=== PATIENT | female | born 1990 | race African-American/Black ===

== ENCOUNTER 2018-05-19 12:41 | Emergency (ER) | payer SELFPAY ==
[2018-05-19] MEDS ORDERED: METHYLPREDNISOLONE 125 MG INJ ONE (13:13)
--- NOTE | 2018-05-19 13:21 | EDPHYS ---
Physician Documentation [facility] Name: Brenna Altamirano Age: 28 yrs Sex: Female : 1990 Arrival Date: 05/19/2018 Time: 12:44 Bed 28 Private MD: None, None ED Physician Eunice Chamberlain HPI: 05/19 13:02 This 28 yrs old Black Female presents to ER via Ambulatory with complaints of Sinus ma2 Congestion. 13:02 The patient or guardian reports allergies, congestion . Onset: The symptoms/episode ma2 began/occurred gradually, 3 week(s) ago. Severity of symptoms: At their worst the symptoms were moderate, in the emergency department the symptoms are unchanged. Associated signs and symptoms: Pertinent negatives: chest pain, diarrhea, ear ache, nausea, rhinorrhea, vomiting. The patient has experienced similar episodes in the past. 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 - Social history:: Smoking status: Patient/guardian denies using tobacco, Patient/guardian denies using alcohol, street drugs, The patient lives with family. - Ebola Screening: : No symptoms or risks identified at this time. - Family history:: not pertinent. ROS: 13:02 Constitutional: Negative for fever, chills, and weight loss, Back: Negative for injury ma2 and pain. 13:02 ENT: Positive for congestion, Negative for foreign body sensation, pulling at ears, tinnitus. 13:02 All other systems are negative. Exam: 13:02 Constitutional: This is a well developed, well nourished patient who is awake, alert, ma2 and in no acute distress. ENT: Nares patent. No nasal discharge, no septal abnormalities noted. Tympanic membranes are normal and external auditory canals are clear. Oropharynx with no redness, swelling, or masses, exudates, or evidence of obstruction, uvula midline. Mucous membranes moist. Chest/axilla: Normal chest wall appearance and motion. Nontender with no deformity. No lesions are appreciated. Cardiovascular: Regular rate and rhythm with a normal S1 and S2. No gallops, murmurs, or rubs. Normal PMI, no JVD. No pulse deficits. Respiratory: Lungs have equal breath sounds bilaterally, clear to auscultation and percussion. No rales, rhonchi or wheezes noted. No increased work of breathing, no retractions or nasal flaring. Abdomen/GI: Soft, non-tender, with normal bowel sounds. No distension or tympany. No guarding or rebound. No evidence of tenderness throughout. Vital Signs: 12:47 BP 126 / 69; Pulse 89; Resp 18; Temp 97.8; Pulse Ox 100% ; Weight 53.98 kg; Height 5 sv ft. 2 in. (157.48 cm); Pain 0/10; 13:34 BP 124 / 70; Pulse 88; Resp 17; Pulse Ox 100% ; kr2 12:47 Body Mass Index 21.77 (53.98 kg, 157.48 cm) sv MDM: 12:54 Patient medically screened. ma2 13:02 Differential Diagnosis: Bronchitis Upper Respiratory Infection Sinusitis Pharyngitis. ma2 Data reviewed: vital signs, nurses notes. Counseling: I had a detailed discussion with the patient and/or guardian regarding: the historical points, exam findings, and any diagnostic results supporting the discharge/admit diagnosis, the presence of at least one elevated blood pressure reading (>120/80) during this emergency department visit. Response to treatment: the patient's symptoms have mildly improved after treatment. Administered Medications: 13:15 Drug: MethylPREDNISolone Sodium Succinate 125 mg Route: IM; Site: left gluteus; kr2 13:33 Follow up: Response: No adverse reaction kr2 Disposition: 05/19/18 13:03 Discharged to Home. Impression: Allergic rhinitis, unspecified. - Condition is Stable. - Discharge Instructions: Allergies, Adult. - Prescriptions for Flonase Allergy Relief 50 mcg/actuation Nasal spray,suspension - inhale 1 spray by INTRANASAL route once daily; 1 box. Medrol (Bright) 4 mg Oral Tablets, Dose Pack - take 1 tablet by ORAL route as directed - follow package instructions; 1 packet. - Medication Reconciliation Form, Thank You Letter, Antibiotic Education, Prescription Opioid Use form. - Follow up: Private Physician; When: Tomorrow; Reason: Continuance of care. Signatures: Hilaria Triplett RN RN Audrey Davis RN RN kr2 Eunice Chamberlain MD MD de2 Corrections: (The following items were deleted from the chart) 13:34 13:03 05/19/2018 13:03 Discharged to Home. Impression: Allergic rhinitis, unspecified. kr2 Condition is Stable. Forms are Medication Reconciliation Form, Thank You Letter, Antibiotic Education, Prescription Opioid Use. Follow up: Private Physician; When: Tomorrow; Reason: Continuance of care. carla
--- NOTE | 2018-05-19 13:21 | ER ---
Nurse's Notes [facility] Name: Brenna Altamirano Age: 28 yrs Sex: Female : 1990 Arrival Date: 05/19/2018 Time: 12:44 Bed 28 Private MD: None, None Diagnosis: Allergic rhinitis, unspecified Presentation: 05/19 12:45 Presenting complaint: Patient states: sinus congestion x 2-3 weeks. Transition of care: sv patient was not received from another setting of care. Transition of care: patient was not received from another setting of care. Onset of symptoms was May 2018. Care prior to arrival: None. 12:45 Method Of Arrival: Ambulatory sv 12:45 Acuity: DANIEL 5 sv 12:59 Risk Assessment: Do you want to hurt yourself or someone else? Patient reports no kr2 desire to harm self or others. Initial Sepsis Screen: Does the patient meet any 2 criteria? No. Patient's initial sepsis screen is negative. Does the patient have a suspected source of infection? No. Patient's initial sepsis screen is negative. 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 - Social history:: Smoking status: Patient/guardian denies using tobacco, Patient/guardian denies using alcohol, street drugs, The patient lives with family. - Ebola Screening: : No symptoms or risks identified at this time. - Family history:: not pertinent. Screenin:59 Abuse screen: Denies threats or abuse. Denies injuries from another. Nutritional kr2 screening: No deficits noted. Tuberculosis screening: No symptoms or risk factors identified. Fall Risk None identified. Assessment: 12:58 General: Appears in no apparent distress. uncomfortable, well groomed, well developed, kr2 well nourished, Behavior is calm, cooperative, appropriate for age. Pain: Complains of pain in face Pain does not radiate. Pain currently is 5 out of 10 on a pain scale. Quality of pain is described as pressure, tender, Is continuous, Alleviated by nothing. Neuro: Level of Consciousness is awake, alert, obeys commands, Oriented to person, place, time, situation. Cardiovascular: Capillary refill < 3 seconds in bilateral fingers Patient's skin is warm and dry. Respiratory: Airway is patent Respiratory effort is even, unlabored, Respiratory pattern is regular, symmetrical. GI: Abdomen is flat. EENT: Oral mucosa is moist. Reports nasal congestion. Derm: Skin is intact, is healthy with good turgor, Skin is pink, warm \T\ dry. Vital Signs: 12:47 BP 126 / 69; Pulse 89; Resp 18; Temp 97.8; Pulse Ox 100% ; Weight 53.98 kg; Height 5 sv ft. 2 in. (157.48 cm); Pain 0/10; 13:34 BP 124 / 70; Pulse 88; Resp 17; Pulse Ox 100% ; kr2 12:47 Body Mass Index 21.77 (53.98 kg, 157.48 cm) sv ED Course: 12:44 Patient arrived in ED. sb2 12:44 None, None is Private Physician. sb2 12:46 Triage completed. sv 12:47 Arm band placed on. sv 12:52 Eunice Chamberlain MD is Attending Physician. ma2 12:57 Audrey Davis, RN is Primary Nurse. kr2 13:00 Patient has correct armband on for positive identification. Bed in low position. Call kr2 light in reach. Side rails up X 1. Pulse ox on. NIBP on. Door closed. Warm blanket given. Head of bed elevated. 13:33 No provider procedures requiring assistance completed. Patient did not have IV access kr2 during this emergency room visit. Administered Medications: 13:15 Drug: MethylPREDNISolone Sodium Succinate 125 mg Route: IM; Site: left gluteus; kr2 13:33 Follow up: Response: No adverse reaction kr2 Outcome: 13:03 Discharge ordered by . ma2 13:33 Discharged to home ambulatory, with family. kr2 13:33 Condition: good 13:33 Discharge instructions given to patient, family, Instructed on discharge instructions, follow up and referral plans. medication usage, Demonstrated understanding of instructions, follow-up care, medications, Prescriptions given X 1. 13:34 Patient left the ED. kr2 Signatures: Hilaria Triplett RN RN Audrey Davis RN RN kr2 Eunice Chamberlain MD MD ma2 Ashwini Gómez sb2
[2018-05-20 14:41] VITALS: BP 124/70; TEMP 97.8; O2SAT 100
== END 2018-05-19 13:34 | disposition home or self-care (01) ==
LOC: ER 12:41
DX: J30.9 Allergic rhinitis, unspecified (principal)
CPT/HCPCS: 96372; 99283; J2930

== ENCOUNTER 2018-07-12 14:55 | Emergency (ER) | payer SELFPAY ==
--- NOTE | 2018-07-12 15:20 | EDPHYS ---
Physician Documentation [facility] Name: Brenna Altamirano Age: 28 yrs Sex: Female : 1990 Arrival Date: 07/12/2018 Time: 14:58 Bed 25 Private MD: None, None ED Physician Mike Parikh HPI: 07/12 15:14 This 28 yrs old Black Female presents to ER via Ambulatory with complaints of Abscess. pm1 15:14 The patient presents with an abscess of the coccyx. Description: draining, raised. pm1 Onset: The symptoms/episode began/occurred 2 day(s) ago. Possible cause(s): unknown. Associated signs and symptoms: Pertinent positives: drainage, Pertinent negatives: fever. Modifying factors: the symptoms are alleviated by warm soaks, squeezing the lesion and expressing the contents, the symptoms are aggravated by touching. Severity of symptoms: in the emergency department the symptoms have improved, markedly. The patient has not experienced similar symptoms in the past. The patient has not recently seen a physician. Patient with abscess to gluteal cleft onset 2 days ago. Patient applied warm compress and expressed some drainage. Size has markedly improved with no current drainage. 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 - Social history:: Smoking status: Patient/guardian denies using tobacco. - Ebola Screening: : No symptoms or risks identified at this time. ROS: 15:14 Constitutional: Negative for fever, chills, and weight loss, Eyes: Negative for injury, pm1 pain, redness, and discharge, ENT: Negative for injury, pain, and discharge, Neck: Negative for injury, pain, and swelling, Cardiovascular: Negative for chest pain, palpitations, and edema, Respiratory: Negative for shortness of breath, cough, wheezing, and pleuritic chest pain, Abdomen/GI: Negative for abdominal pain, nausea, vomiting, diarrhea, and constipation, Back: Negative for injury and pain, : Negative for injury, bleeding, discharge, and swelling, MS/Extremity: Negative for injury and deformity. 15:14 Neuro: Negative for headache, weakness, numbness, tingling, and seizure. 15:14 Skin: Positive for abscess, of the coccyx, Negative for cellulitis. Exam: 15:14 Constitutional: This is a well developed, well nourished patient who is awake, alert, pm1 and in no acute distress. Head/Face: Normocephalic, atraumatic. Neck: Trachea midline, no thyromegaly or masses palpated, and no cervical lymphadenopathy. Supple, full range of motion without nuchal rigidity, or vertebral point tenderness. No Meningismus. Chest/axilla: Normal chest wall appearance and motion. Nontender with no deformity. No lesions are appreciated. Cardiovascular: Regular rate and rhythm with a normal S1 and S2. No gallops, murmurs, or rubs. Normal PMI, no JVD. No pulse deficits. Respiratory: Lungs have equal breath sounds bilaterally, clear to auscultation and percussion. No rales, rhonchi or wheezes noted. No increased work of breathing, no retractions or nasal flaring. Abdomen/GI: Soft, non-tender, with normal bowel sounds. No distension or tympany. No guarding or rebound. No evidence of tenderness throughout. Back: No spinal tenderness. No costovertebral tenderness. Full range of motion. 15:14 MS/ Extremity: Pulses equal, no cyanosis. Neurovascular intact. Full, normal range of motion. 15:14 Skin: Appearance: normal except for affected area, Phlegmon to gluteal cleft: no redness, fluctuance, surrounding cellulitis, pointing, or drainage present. [facility] present as bottle blower for evalution. 15:14 Neuro: Orientation: is normal, Motor: is normal. Vital Signs: 15:03 BP 103 / 64; Pulse 80; Resp 16; Temp 98.4; Pulse Ox 100% ; Height 5 ft. 2 in. (157.48 sv cm); Pain 2/10; 15:06 Weight 54.66 kg (M); sv 15:06 Body Mass Index 22.04 (54.66 kg, 157.48 cm) sv MDM: 15:04 Patient medically screened. pm1 15:14 Data reviewed: vital signs. Data interpreted: Pulse oximetry: on room air is 100 %. pm1 Interpretation: normal. Counseling: I had a detailed discussion with the patient and/or guardian regarding: the historical points, exam findings, and any diagnostic results supporting the discharge/admit diagnosis, the need for outpatient follow up, for definitive care, a general surgeon, to return to the emergency department if symptoms worsen or persist or if there are any questions or concerns that arise at home. 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 Exp: ls4 08/23/2020. Lot #: [id number]. } Route: IM; Site: right deltoid; 16:09 Follow up: Response: No adverse reaction ls4 15:36 Drug: Tylenol #3 (300 mg-30 mg) 1 tablet Route: PO; ls4 15:41 Follow up: Response: No adverse reaction ls4 Disposition: 07/12/18 15:20 Discharged to Home. Impression: Pilonidal cyst without abscess. - Condition is Stable. - Discharge Instructions: Pilonidal Cyst. - Prescriptions for Tylenol- Codeine #3 300-30 mg Oral Tablet - take 1 tablet by ORAL route every 6 hours As needed; 12 tablet. Bactrim DS 800- 160 mg Oral Tablet - take 1 tablet by ORAL route every 12 hours for 10 days; 20 tablet. - Medication Reconciliation Form, Thank You Letter, Antibiotic Education, Prescription Opioid Use form. - Follow up: Emergency Department; When: As needed; Reason: Worsening of condition. Follow up: Phi James MD; When: 2 - 3 days; Reason: Recheck today's complaints, Continuance of care, Re-evaluation by your physician. - Problem is new. - Symptoms have improved. Addendum: 07/14/2018 06:24 Co-signature as Attending Physician, Mike Parikh MD I agree with the assessment and c mclean plan of care. Signatures: Hilaria Triplett RN RN sv Anderson, Corey, MD MD cha Marinas, Patrick, NP RAILWAY YARD ASSISTANT pm1 Barbara Garay RN RN ls4 Corrections: (The following items were deleted from the chart) 07/12 15:45 15:20 07/12/2018 15:20 Discharged to Home. Impression: Pilonidal cyst without abscess. ls4 Condition is Stable. Forms are Medication Reconciliation Form, Thank You Letter, Antibiotic Education, Prescription Opioid Use. Follow up: Emergency Department; When: As needed; Reason: Worsening of condition. Follow up: Phi James; When: 2 - 3 days; Reason: Recheck today's complaints, Continuance of care, Re-evaluation by your physician. Problem is new. Symptoms have improved. pm1 16:10 15:45 07/12/2018 15:20 Discharged to Home. Impression: Pilonidal cyst without abscess. ls4 Condition is Stable. Discharge Instructions: Pilonidal Cyst. Prescriptions for Tylenol-Codeine #3 300-30 mg Oral Tablet - take 1 tablet by ORAL route every 6 hours As needed; 12 tablet, Bactrim DS 800-160 mg Oral Tablet - take 1 tablet by ORAL route every 12 hours for 10 days; 20 tablet. and Forms are Medication Reconciliation Form, Thank You Letter, Antibiotic Education, Prescription Opioid Use. Follow up: Emergency Department; When: As needed; Reason: Worsening of condition. Follow up: Phi James; When: 2 - 3 days; Reason: Recheck today's complaints, Continuance of care, Re-evaluation by your physician. Problem is new. Symptoms have improved. ls4
--- NOTE | 2018-07-12 15:20 | ER ---
Nurse's Notes [facility] Name: Brenna Altamirano Age: 28 yrs Sex: Female : 1990 Arrival Date: 07/12/2018 Time: 14:58 Bed 25 Private MD: None, None Diagnosis: Pilonidal cyst without abscess Presentation: 07/12 15:01 Presenting complaint: Patient states: abscess at the top of the gluteal cleft started 2 sv days ago. Reports that it is draining after soaking in an epsom salt bath. Denies fever. Transition of care: patient was not received from another setting of care. Onset of symptoms was July 10, 2018. Care prior to arrival: None. 15:01 Method Of Arrival: Ambulatory sv 15:01 Acuity: DANIEL 3 sv 16:07 Risk Assessment: Do you want to hurt yourself or someone else? Patient reports no ls4 desire to harm self or others. Initial Sepsis Screen: Does the patient meet any 2 criteria? No. Patient's initial sepsis screen is negative. Does the patient have a suspected source of infection? No. Patient's initial sepsis screen is negative. Triage Assessment: 15:01 General: Appears in no apparent distress. uncomfortable, slender, Behavior is calm, sv cooperative, appropriate for age. Pain: Complains of pain in buttocks Pain currently is 2 out of 10 on a pain scale. Neuro: Level of Consciousness is awake, alert, obeys commands, Oriented to person, place, time, situation, Moves all extremities. Full function Gait is steady. Respiratory: Respiratory effort is even, unlabored, Respiratory pattern is regular, symmetrical. Derm: Reports abscess to the top of her gluteal cleft. 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 - Social history:: Smoking status: Patient/guardian denies using tobacco. - Ebola Screening: : No symptoms or risks identified at this time. Screenin:16 Abuse screen: Denies threats or abuse. Denies injuries from another. Nutritional ls4 screening: No deficits noted. Tuberculosis screening: No symptoms or risk factors identified. Fall Risk None identified. 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 ls4 Vital Signs: 15:03 BP 103 / 64; Pulse 80; Resp 16; Temp 98.4; Pulse Ox 100% ; Height 5 ft. 2 in. (157.48 sv cm); Pain 2/10; 15:06 Weight 54.66 kg (M); sv 15:06 Body Mass Index 22.04 (54.66 kg, 157.48 cm) sv ED Course: 14:58 Patient arrived in ED. mr 14:58 None, None is Private Physician. mr 15:02 Triage completed. sv 15:03 Rafy Remy NP is PHCP. pm1 15:03 Mike Parikh MD is Attending Physician. pm1 15:03 Arm band placed on. sv 15:09 Barbara Garay RN is Primary Nurse. ls4 15:16 Patient has correct armband on for positive identification. Bed in low position. Side ls4 rails up X 1. 15:16 No provider procedures requiring assistance completed. Patient did not have IV access ls4 during this emergency room visit. 15:19 Phi James MD is Referral Physician. 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 Exp: ls4 08/23/2020. Lot #: [id number]. } Route: IM; Site: right deltoid; 16:09 Follow up: Response: No adverse reaction ls4 15:36 Drug: Tylenol #3 (300 mg-30 mg) 1 tablet Route: PO; ls4 15:41 Follow up: Response: No adverse reaction ls4 Outcome: 15:20 Discharge ordered by . pm1 16:09 Discharged to home ambulatory, with friend. ls4 16:09 Condition: good 16:09 Discharge instructions given to patient, family, Instructed on discharge instructions, follow up and referral plans. medication usage, safety practices, Demonstrated understanding of instructions, follow-up care, medications, wound care, Prescriptions given X 2. 16:10 Patient left the ED. ls4 Signatures: Hilaria Triplett RN RN Gladis Diaz mr Rafy Remy, KERRI CAR INSTALLATIONS SUPERVISOR pm1 Barbara Garay RN RN ls4
[2018-07-12] MEDS ORDERED: CODEINE 30MG/APAP 300MG TAB ONE (15:37)
[2018-07-12] MEDS ORDERED: TETANUS & DIPHTHERIA TOX,ADULT 0.5 ML VIAL ONE (15:38)
[2018-07-12 16:34] VITALS: BP 103/64; TEMP 98.4; O2SAT 100
== END 2018-07-12 16:10 | disposition home or self-care (01) ==
LOC: ER 14:55
DX: L05.91 Pilonidal cyst without abscess (principal)
CPT/HCPCS: 90714; 99283

== ENCOUNTER 2018-11-20 14:27 | Emergency (ER) | payer SELFPAY ==
[2018-11-20] MEDS ORDERED: IBUPROFEN 400 MG TAB ONE (15:13)
[2018-11-20] MEDS ORDERED: IBUPROFEN 200 MG TAB PO ONE (15:13)
--- NOTE | 2018-11-20 16:21 | ER ---
Nurse's Notes [facility] Name: Brenna Altamirano Age: 28 yrs Sex: Female : 1990 Arrival Date: 11/20/2018 Time: 14:29 Bed 18 Private MD: None, None Diagnosis: Otitis media, unspecified, left ear;Acute pharyngitis Presentation: 11/20 14:38 Presenting complaint: Patient states: Right ear pain and sore throat since Saturday, sg reports having chills but unsure of any fever. Transition of care: patient was not received from another setting of care. Onset of symptoms was November 20, 2018. Risk Assessment: Do you want to hurt yourself or someone else? Patient reports no desire to harm self or others. Initial Sepsis Screen: Does the patient meet any 2 criteria? No. Patient's initial sepsis screen is negative. Does the patient have a suspected source of infection? No. Patient's initial sepsis screen is negative. Care prior to arrival: None. 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 - Social history:: Smoking status: Patient/guardian denies using tobacco. - Ebola Screening: : Patient negative for fever greater than or equal to 101.5 degrees Fahrenheit, and additional compatible Ebola Virus Disease symptoms Patient denies exposure to infectious person Patient denies travel to an Ebola-affected area in the 21 days before illness onset No symptoms or risks identified at this time. Screenin:44 Abuse screen: Denies threats or abuse. Denies injuries from another. Nutritional jl7 screening: No deficits noted. Tuberculosis screening: No symptoms or risk factors identified. Fall Risk None identified. Assessment: 14:44 General: Appears in no apparent distress. uncomfortable, Behavior is calm, cooperative, jl7 appropriate for age. Pain: Complains of pain in sore throat Pain currently is 8 out of 10 on a pain scale. at worst was 10 out of 10 on a pain scale. Neuro: Level of Consciousness is awake, alert, obeys commands, Oriented to person, place, time, situation. Cardiovascular: Patient's skin is warm and dry. Respiratory: Airway is patent Respiratory effort is even, unlabored, Respiratory pattern is regular, symmetrical, Breath sounds are clear. EENT: Throat is clear bilaterally. Derm: Skin is pink, warm \T\ dry. Vital Signs: 14:37 BP 128 / 74; Pulse 102; Resp 18; Temp 99.8; Pulse Ox 100% ; Weight 63.5 kg; Height 5 sg ft. 5 in. (165.10 cm); Pain 8/10; 14:43 Pulse 95; Resp 14 S; Temp 100.4(O); Pulse Ox 100% on R/A; jl7 16:39 BP 128 / 87; Pulse 80; Resp 16 S; Temp 99.6(O); Pulse Ox 100% on R/A; jl7 14:37 Body Mass Index 23.30 (63.50 kg, 165.10 cm) ED Course: 14:29 Patient arrived in ED. mr 14:29 None, None is Private Physician. mr 14:37 Mina Costa, LAURE is Primary Nurse. jl7 14:39 Triage completed. sg 14:44 Patient has correct armband on for positive identification. Bed in low position. Call jl7 light in reach. Side rails up X 1. Pulse ox on. NIBP on. 14:59 Rafy Remy NP is PHCP. pm1 14:59 Nick Salgado MD is Attending Physician. pm1 16:40 Arm band placed on right wrist. jl7 16:41 No provider procedures requiring assistance completed. Patient did not have IV access jl7 during this emergency room visit. Administered Medications: 15:03 Drug: Motrin 600 mg Route: PO; jl7 16:41 Follow up: Response: No adverse reaction; Temperature is decreased jl7 Outcome: 16:20 Discharge ordered by . pm1 16:40 Discharged to home ambulatory. jl7 16:40 Condition: stable 16:40 Discharge instructions given to patient, family, Instructed on discharge instructions, follow up and referral plans. medication usage, Demonstrated understanding of instructions, follow-up care, medications, Prescriptions given X 1. 16:41 Patient left the ED. jl7 Signatures: Jarett Lynne RN RN sg Joe, Gladis mr Sandrita, Rafy, MEDICAL AND SCIENTIFIC ILLUSTRATOR MEDICAL AND SCIENTIFIC ILLUSTRATOR pm1 Mina Costa, LAURE RN jl7
--- NOTE | 2018-11-20 16:21 | EDPHYS ---
Physician Documentation [facility] Name: Brenna Altamirano Age: 28 yrs Sex: Female : 1990 Arrival Date: 11/20/2018 Time: 14:29 Bed 18 Private MD: None, None ED Physician Nick Salgado HPI: 11/20 15:17 This 28 yrs old Black Female presents to ER via Ambulatory with complaints of Sore pm1 Throat, Left Ear Pain. 15:17 The patient presents with sore throat. The patient describes throat pain as scratchy. pm1 Onset: The symptoms/episode began/occurred 3 day(s) ago. Severity of symptoms: in the emergency department the symptoms are actually worse. Modifying factors: The symptoms are alleviated by nothing, the symptoms are aggravated by swallowing, Talking, Patient's oral intake status: good. Associated signs and symptoms: Pertinent positives: cough, earache, Pertinent negatives chills, rhinorrhea, shortness of breath, vomiting. The patient has not experienced similar symptoms in the past. The patient has not recently seen a physician. 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 - Social history:: Smoking status: Patient/guardian denies using tobacco. - Ebola Screening: : Patient negative for fever greater than or equal to 101.5 degrees Fahrenheit, and additional compatible Ebola Virus Disease symptoms Patient denies exposure to infectious person Patient denies travel to an Ebola-affected area in the 21 days before illness onset No symptoms or risks identified at this time. ROS: 15:17 Constitutional: Negative for fever, chills, and weight loss. pm1 15:17 Eyes: Negative for injury, pain, redness, and discharge. 15:17 Neck: Negative for injury, pain, and swelling, Cardiovascular: Negative for chest pain, palpitations, and edema. 15:17 Abdomen/GI: Negative for abdominal pain, nausea, vomiting, diarrhea, and constipation, Back: Negative for injury and pain, : Negative for injury, bleeding, discharge, and swelling, MS/Extremity: Negative for injury and deformity, Skin: Negative for injury, rash, and discoloration, Neuro: Negative for headache, weakness, numbness, tingling, and seizure. 15:17 ENT: Positive for ear pain, sore throat, Negative for difficulty swallowing, difficulty handling secretions, hoarseness. 15:17 Respiratory: Positive for cough, Negative for shortness of breath, sputum production, wheezing. Exam: 15:17 Constitutional: This is a well developed, well nourished patient who is awake, alert, pm1 and in no acute distress. Head/Face: Normocephalic, atraumatic. Eyes: Pupils equal round and reactive to light, extra-ocular motions intact. Lids and lashes normal. Conjunctiva and sclera are non-icteric and not injected. Cornea within normal limits. Periorbital areas with no swelling, redness, or edema. 15:17 Neck: Trachea midline, no thyromegaly or masses palpated, and no cervical pm1 lymphadenopathy. Supple, full range of motion without nuchal rigidity, or vertebral point tenderness. No Meningismus. Chest/axilla: Normal chest wall appearance and motion. Nontender with no deformity. No lesions are appreciated. Cardiovascular: Regular rate and rhythm with a normal S1 and S2. No gallops, murmurs, or rubs. Normal PMI, no JVD. No pulse deficits. Respiratory: Lungs have equal breath sounds bilaterally, clear to auscultation and percussion. No rales, rhonchi or wheezes noted. No increased work of breathing, no retractions or nasal flaring. Abdomen/GI: Soft, non-tender, with normal bowel sounds. No distension or tympany. No guarding or rebound. No evidence of tenderness throughout. Back: No spinal tenderness. No costovertebral tenderness. Full range of motion. Skin: Warm, dry with normal turgor. Normal color with no rashes, no lesions, and no evidence of cellulitis. MS/ Extremity: Pulses equal, no cyanosis. Neurovascular intact. Full, normal range of motion. 15:17 ENT: External ear(s): are unremarkable, Ear canal(s): are normal, TM's: bulging, on the left, erythema, that is mild, on the left, Nose: is normal, Mouth: is normal, Posterior pharynx: Airway: normal, no evidence of obstruction, patent, Tonsils: bilaterally enlarged, with erythema, no exudate, no ulcerations, erythema, that is mild, peritonsillar mass, is not appreciated. 15:17 Neuro: Orientation: is normal, Motor: is normal, moves all fours, strength is normal, strength is 5/5 in all extremities. Vital Signs: 14:37 BP 128 / 74; Pulse 102; Resp 18; Temp 99.8; Pulse Ox 100% ; Weight 63.5 kg; Height 5 sg ft. 5 in. (165.10 cm); Pain 8/10; 14:43 Pulse 95; Resp 14 S; Temp 100.4(O); Pulse Ox 100% on R/A; jl7 16:39 BP 128 / 87; Pulse 80; Resp 16 S; Temp 99.6(O); Pulse Ox 100% on R/A; jl7 14:37 Body Mass Index 23.30 (63.50 kg, 165.10 cm) sg MDM: 15:02 Patient medically screened. pm1 15:17 Data reviewed: vital signs. Data interpreted: Pulse oximetry: on room air is 100 %. pm1 Interpretation: normal. 16:20 Counseling: I had a detailed discussion with the patient and/or guardian regarding: the pm1 historical points, exam findings, and any diagnostic results supporting the discharge/admit diagnosis, lab results, the need for outpatient follow up, to return to the emergency department if symptoms worsen or persist or if there are any questions or concerns that arise at home. 11/20 15:14 Order name: Strep; Complete Time: 16:11 [facility] 11/20 15:38 Order name: Throat Culture EDMS Administered Medications: 15:03 Drug: Motrin 600 mg Route: PO; 7 16:41 Follow up: Response: No adverse reaction; Temperature is decreased [facility] Disposition: 11/20/18 16:20 Discharged to Home. Impression: Otitis media, unspecified, left ear, Acute pharyngitis. - Condition is Stable. - Discharge Instructions: Pharyngitis, Otitis Media, Adult, [id number]. - Prescriptions for Amoxicillin 500 mg Oral Capsule - take 1 capsule by ORAL route every 8 hours for 10 days; 30 tablet. - Medication Reconciliation Form, Thank You Letter, Antibiotic Education, Prescription Opioid Use form. - Follow up: Emergency Department; When: As needed; Reason: Worsening of condition. Follow up: Private Physician; When: 2 - 3 days; Reason: Recheck today's complaints, Continuance of care, Re-evaluation by your physician. - Problem is new. - Symptoms have improved. Addendum: 11/23/2018 00:13 Co-signature as Attending Physician, Nick Salgado MD. g s Signatures: Dispatcher [employer] EDMS Jarett Lynne RN RN sg Rafy Remy NP WHOLESALE MANAGER pm1 Mina Costa RN RN jl7 Nick Salgado MD MD Corrections: (The following items were deleted from the chart) 11/20 16:41 16:20 11/20/2018 16:20 Discharged to Home. Impression: Otitis media, unspecified, left jl7 ear; Acute pharyngitis. Condition is Stable. Forms are Medication Reconciliation Form, Thank You Letter, Antibiotic Education, Prescription Opioid Use. Follow up: Emergency Department; When: As needed; Reason: Worsening of condition. Follow up: Private Physician; When: 2 - 3 days; Reason: Recheck today's complaints, Continuance of care, Re-evaluation by your physician. Problem is new. Symptoms have improved. pm1
[2018-11-20 17:14] VITALS: O2SAT 100
[2018-11-20 17:17] VITALS: BP 128/87; TEMP 99.6
== END 2018-11-20 16:41 | disposition home or self-care (01) ==
LOC: ER 14:27
DX: H66.92 Otitis media, unspecified, left ear (principal)
CPT/HCPCS: 87070; 87081; 99283

== ENCOUNTER 2019-02-25 14:58 | Emergency (ER) | payer SELFPAY ==
--- NOTE | 2019-02-25 15:39 | ER ---
Nurse's Notes [facility] Name: Brenna Altamirano Age: 29 yrs Sex: Female : 1990 Arrival Date: 02/25/2019 Time: 15:02 Bed 11 Private MD: None, None Diagnosis: Other local infections of skin and subcutaneous tissue-right yazidism Presentation: 02/25 15:12 Presenting complaint: Abscess on right side of head x 2 days. Transition of care: hb patient was not received from another setting of care. Onset of symptoms was February 24, 2019. Risk Assessment: Do you want to hurt yourself or someone else? Patient reports no desire to harm self or others. Care prior to arrival: None. 15:12 Method Of Arrival: Ambulatory hb 15:12 Acuity: DANIEL 4 hb 15:13 Initial Sepsis Screen: Does the patient meet any 2 criteria? No. Patient's initial hb sepsis screen is negative. Does the patient have a suspected source of infection? No. Patient's initial sepsis screen is negative. Historical: - Allergies: 15:14 No Known Allergies; hb - Home Meds: 15:14 None [Active]; hb - PMHx: 15:14 None; hb - PSHx: 15:14 breast; wrist; hb - Immunization history:: Adult Immunizations up to date. - Social history:: Smoking status: Patient/guardian denies using tobacco. - Ebola Screening: : No symptoms or risks identified at this time. Screenin:15 Abuse screen: Denies threats or abuse. Denies injuries from another. Nutritional hb screening: No deficits noted. Tuberculosis screening: No symptoms or risk factors identified. Fall Risk None identified. Assessment: 15:16 General: Appears in no apparent distress. Behavior is calm, cooperative. Pain: Pain hb currently is 8 out of 10 on a pain scale. Neuro: Level of Consciousness is awake, alert, obeys commands, Oriented to person, place, time, situation. Cardiovascular: Capillary refill < 3 seconds Patient's skin is warm and dry. Respiratory: Airway is patent Respiratory effort is even, unlabored, Respiratory pattern is regular, symmetrical, Breath sounds are clear bilaterally. GI: No signs and/or symptoms were reported involving the gastrointestinal system. : No signs and/or symptoms were reported regarding the genitourinary system. EENT: No signs and/or symptoms were reported regarding the EENT system. Derm: Skin is pink, warm \T\ dry. Musculoskeletal: mild swelling noted to right sided of head. Vital Signs: 15:13 BP 117 / 76; Pulse 86; Resp 16; Temp 97.9; Pulse Ox 100% on R/A; Weight 51.71 kg; hb Height 5 ft. 2 in. (157.48 cm); Pain 8/10; 15:13 Body Mass Index 20.85 (51.71 kg, 157.48 cm) hb ED Course: 15:02 Patient arrived in ED. dl4 15:02 None, None is Private Physician. dl4 15:13 Triage completed. hb 15:14 Arm band placed on. hb 15:15 Alyce Arthur RN is Primary Nurse. hb 15:15 Patient has correct armband on for positive identification. Call light in reach. hb 15:18 Mike Hyman PA is PHCP. cp 15:18 Enio Gee MD is Attending Physician. cp 15:45 No provider procedures requiring assistance completed. Patient did not have IV access hb during this emergency room visit. Administered Medications: No medications were administered Outcome: 15:39 Discharge ordered by MD. cp 15:45 Discharged to home ambulatory. hb 15:45 Condition: stable 15:45 Discharge instructions given to patient, Instructed on discharge instructions, follow up and referral plans. medication usage, Demonstrated understanding of instructions, follow-up care, medications, Prescriptions given X 2. 15:46 Patient left the ED. hb Signatures: Mike Hyman PA PA cp Baxter, Heather, RN RN Timothy Bronson dl4
--- NOTE | 2019-02-25 15:39 | EDPHYS ---
Physician Documentation [facility] Name: Brenna Altamirano Age: 29 yrs Sex: Female : 1990 Arrival Date: 02/25/2019 Time: 15:02 Bed 11 Private MD: None, None ED Physician Enio Gee HPI: 02/25 15:34 This 29 yrs old Black Female presents to ER via Ambulatory with complaints of Cyst. cp 15:34 the patient presents with a swollen area of the right adventism. cp 15:35 Onset: The symptoms/episode began/occurred 2 day(s) ago. cp 15:35 Possible cause(s): started after removal of hair and skin adhesive. Associated signs cp and symptoms: Pertinent positives: drainage, Pertinent negatives: fever. Historical: - Allergies: 15:14 No Known Allergies; hb - Home Meds: 15:14 None [Active]; hb - PMHx: 15:14 None; hb - PSHx: 15:14 breast; wrist; hb - Immunization history:: Adult Immunizations up to date. - Social history:: Smoking status: Patient/guardian denies using tobacco. - Ebola Screening: : No symptoms or risks identified at this time. ROS: 15:35 Eyes: Negative for injury, pain, redness, and discharge. cp 15:35 Constitutional: Negative for body aches, chills, fever. 15:35 Respiratory: Negative for cough, wheezing. 15:35 Abdomen/GI: Negative for abdominal pain. 15:35 Skin: Positive for swelling, of the face. 15:35 Neuro: Negative for altered mental status, weakness. 15:35 All other systems are negative. Exam: 15:36 Constitutional: The patient appears in no acute distress, alert, awake, non-toxic, well cp developed, well nourished. 15:36 Head/face: Noted is swelling, that is mild, of the right adventism, tenderness, that is moderate, of the right adventism. 15:36 Eyes: Periorbital structures: appear normal, Conjunctiva: normal, no exudate, no injection, Lids and lashes: appear normal, bilaterally. 15:36 ENT: External ear(s): are unremarkable, Nose: is normal, Mouth: is normal, Posterior pharynx: Airway: no evidence of obstruction, patent. 15:36 Neck: ROM/movement: is normal, is supple, without pain, no range of motions limitations, no nuchal rigidity. 15:36 Chest/axilla: Inspection: normal. 15:36 Cardiovascular: Rate: normal. 15:36 Respiratory: the patient does not display signs of respiratory distress, Respirations: normal. Vital Signs: 15:13 BP 117 / 76; Pulse 86; Resp 16; Temp 97.9; Pulse Ox 100% on R/A; Weight 51.71 kg; hb Height 5 ft. 2 in. (157.48 cm); Pain 8/10; 15:13 Body Mass Index 20.85 (51.71 kg, 157.48 cm) hb MDM: 15:25 Patient medically screened. cp 15:35 Differential diagnosis: abscess, allergic reaction, cellulitis. cp 15:39 Data reviewed: vital signs, nurses notes, and as a result, I will discharge patient. cp Administered Medications: No medications were administered Disposition: 16:00 Chart complete. cp 17:21 Co-signature as Attending Physician, Enio Gee MD. rn Disposition: 02/25/19 15:39 Discharged to Home. Impression: Other local infections of skin and subcutaneous tissue - right adventism. - Condition is Stable. - Discharge Instructions: Staphylococcal Infection. - Prescriptions for Bactroban 2 % Topical Ointment - Apply to affected area 1 application by TOPICAL route every 12 hours; 15 gram. Keflex 500 mg Oral Capsule - take 1 capsule by ORAL route every 6 hours for 10 days; 40 capsule. - Medication Reconciliation Form, Thank You Letter, Antibiotic Education, Prescription Opioid Use form. - Follow up: Private Physician; When: 2 - 3 days; Reason: Worsening of condition. - Problem is new. - Symptoms have improved. Signatures: Enio Gee MD MD rn Mike Hyman PA PA cp Alyce Arthur, RN RN Corrections: (The following items were deleted from the chart) 15:46 15:39 02/25/2019 15:39 Discharged to Home. Impression: Other local infections of skin hb and subcutaneous tissue - right adventism. Condition is Stable. Forms are Medication Reconciliation Form, Thank You Letter, Antibiotic Education, Prescription Opioid Use. Follow up: Private Physician; When: 2 - 3 days; Reason: Worsening of condition. Problem is new. Symptoms have improved. cp
[2019-02-25 16:00] VITALS: BP 117/76; TEMP 97.9; O2SAT 100
== END 2019-02-25 15:46 | disposition home or self-care (01) ==
LOC: ER 14:58
DX: L08.89 Other specified local infections of the skin and subcutaneous tissue (principal)
CPT/HCPCS: 99282

== ENCOUNTER 2019-05-06 17:47 | Emergency (ER) | payer SELFPAY ==
[2019-05-06] MEDS ORDERED: METHYLPREDNISOLONE 125 MG INJ ONE (18:33)
--- NOTE | 2019-05-06 18:34 | ER ---
Nurse's Notes [facility] Name: Brenna Altamirano Age: 29 yrs Sex: Female : 1990 Arrival Date: 05/06/2019 Time: 17:51 Bed 28 Private MD: Diagnosis: Allergic rhinitis, unspecified Presentation: 05/06 18:00 Presenting complaint: Headache, sinus pressure, sore throat, bilateral ear pain, and hb diffuse itching x 3 days. Transition of care: patient was not received from another setting of care. Onset of symptoms was May 04, 2019. Risk Assessment: Do you want to hurt yourself or someone else? Patient reports no desire to harm self or others. Initial Sepsis Screen: Does the patient meet any 2 criteria? No. Patient's initial sepsis screen is negative. Does the patient have a suspected source of infection? No. Patient's initial sepsis screen is negative. Care prior to arrival: None. 18:00 Method Of Arrival: Ambulatory hb 18:00 Acuity: DANIEL 4 hb Historical: - Allergies: 18:01 No Known Allergies; hb - Home Meds: 18:01 Benadryl Oral [Active]; hb - PMHx: 18:01 Seasonal Allergies; hb - PSHx: 18:01 breast; wrist; hb - Immunization history:: Adult Immunizations up to date. - Social history:: Smoking status: Patient/guardian denies using tobacco. - Ebola Screening: : No symptoms or risks identified at this time. Screenin:00 Abuse screen: Denies threats or abuse. Nutritional screening: No deficits noted. tr5 Tuberculosis screening: No symptoms or risk factors identified. Fall Risk None identified. Assessment: 18:00 General: Appears in no apparent distress. Behavior is calm, cooperative, appropriate tr5 for age. Pain: Complains of pain in right ear and left ear. Neuro: Level of Consciousness is awake, alert, obeys commands, Oriented to person, place, time, Methods Time Analyst are equal bilaterally Moves all extremities. Cardiovascular: Heart tones present Capillary refill < 3 seconds Pulses are all present. Edema is absent. Respiratory: Airway is patent Respiratory effort is even, unlabored, Respiratory pattern is regular, symmetrical, Breath sounds are clear bilaterally. GI: No signs and/or symptoms were reported involving the gastrointestinal system. : No signs and/or symptoms were reported regarding the genitourinary system. EENT: Nares with drainage noted Throat is reddened. Derm: No signs and/or symptoms reported regarding the dermatologic system. Musculoskeletal: No signs and/or symptoms reported regarding the musculoskeletal system. Vital Signs: 17:59 BP 115 / 84; Pulse 87; Resp 16; Temp 99.4(TE); Pulse Ox 100% ; Weight 54.43 kg; Height hb 5 ft. 2 in. (157.48 cm); Pain 2/10; 17:59 Body Mass Index 21.95 (54.43 kg, 157.48 cm) hb ED Course: 17:51 Patient arrived in ED. mr 17:51 [facility]C [facility]. kb 17:51 Enio Gee MD is Attending Physician. kb 18:00 Triage completed. hb 18:01 Arm band placed on. hb 18:05 Patient has correct armband on for positive identification. tr5 18:31 Marty Frances RN is Primary Nurse. tr5 18:42 No provider procedures requiring assistance completed. Patient did not have IV access tr5 during this emergency room visit. Administered Medications: 18:36 Drug: SOLU-Medrol 125 mg Route: IM; Site: left ventrogluteal; tr5 18:43 Follow up: Response: No adverse reaction tr5 Outcome: 18:33 Discharge ordered by . kb 18:42 Discharged to home ambulatory. tr5 18:42 Condition: stable 18:42 Discharge instructions given to patient, Instructed on discharge instructions, follow up and referral plans. Demonstrated understanding of instructions, follow-up care. 18:43 Patient left the ED. tr5 Signatures: Annika Feldman FNP-C FNP-Ckb RiveraGladis Alyce Arthur, RN RN Marty Frances RN RN tr5
--- NOTE | 2019-05-06 18:34 | EDPHYS ---
Physician Documentation [facility] Name: Brenna Altamirano Age: 29 yrs Sex: Female : 1990 Arrival Date: 05/06/2019 Time: 17:51 Bed 28 Private MD: ED Physician Enio Gee HPI: 05/06 18:31 This 29 yrs old Black Female presents to ER via Ambulatory with complaints of Sore kb Throat, Ear Pain, Sneezing. 18:31 The patient presents with sore throat. The patient describes throat pain as constant. kb Onset: The symptoms/episode began/occurred last week. Severity of symptoms: At their worst the symptoms were moderate, in the emergency department the symptoms are unchanged. Modifying factors: The symptoms are alleviated by nothing, the symptoms are aggravated by nothing, Patient's oral intake status: good unaware of sick contact. Associated signs and symptoms: Pertinent positives: Sore throat congestion. The patient has experienced similar episodes in the past. The patient has not recently seen a physician. "it's my allergies. I have to come in every year around this time for a steroid shot for my allergies.". Historical: - Allergies: 18:01 No Known Allergies; hb - Home Meds: 18:01 Benadryl Oral [Active]; hb - PMHx: 18:01 Seasonal Allergies; hb - PSHx: 18:01 breast; wrist; hb - Immunization history:: Adult Immunizations up to date. - Social history:: Smoking status: Patient/guardian denies using tobacco. - Ebola Screening: : No symptoms or risks identified at this time. ROS: 18:30 Constitutional: Negative for fever, chills, and weight loss, Neck: Negative for injury, kb pain, and swelling, Cardiovascular: Negative for chest pain, palpitations, and edema, Respiratory: Negative for shortness of breath, cough, wheezing, and pleuritic chest pain, Abdomen/GI: Negative for abdominal pain, nausea, vomiting, diarrhea, and constipation, MS/Extremity: Negative for injury and deformity, Skin: Negative for injury, rash, and discoloration, Neuro: Negative for headache, weakness, numbness, tingling, and seizure. 18:30 ENT: Positive for sinus congestion, sore throat. Exam: 18:30 Constitutional: This is a well developed, well nourished patient who is awake, alert, kb and in no acute distress. Head/Face: Normocephalic, atraumatic. ENT: Nares patent. No nasal discharge, no septal abnormalities noted. Tympanic membranes are normal and external auditory canals are clear. Oropharynx with no redness, swelling, or masses, exudates, or evidence of obstruction, uvula midline. Mucous membranes moist. Neck: Trachea midline, no thyromegaly or masses palpated, and no cervical lymphadenopathy. Supple, full range of motion without nuchal rigidity, or vertebral point tenderness. No Meningismus. Chest/axilla: Normal chest wall appearance and motion. Nontender with no deformity. No lesions are appreciated. Cardiovascular: Regular rate and rhythm with a normal S1 and S2. No gallops, murmurs, or rubs. Normal PMI, no JVD. No pulse deficits. Respiratory: Lungs have equal breath sounds bilaterally, clear to auscultation and percussion. No rales, rhonchi or wheezes noted. No increased work of breathing, no retractions or nasal flaring. Abdomen/GI: Soft, non-tender, with normal bowel sounds. No distension or tympany. No guarding or rebound. No evidence of tenderness throughout. Back: No spinal tenderness. No costovertebral tenderness. Full range of motion. Skin: Warm, dry with normal turgor. Normal color with no rashes, no lesions, and no evidence of cellulitis. MS/ Extremity: Pulses equal, no cyanosis. Neurovascular intact. Full, normal range of motion. Neuro: Awake and alert, GCS 15, oriented to person, place, time, and situation. Cranial nerves II-XII grossly intact. Motor strength 5/5 in all extremities. Sensory grossly intact. Cerebellar exam normal. Normal gait. Vital Signs: 17:59 BP 115 / 84; Pulse 87; Resp 16; Temp 99.4(TE); Pulse Ox 100% ; Weight 54.43 kg; Height hb 5 ft. 2 in. (157.48 cm); Pain 2/10; 17:59 Body Mass Index 21.95 (54.43 kg, 157.48 cm) hb MDM: 18:02 Patient medically screened. kb 18:30 Data reviewed: vital signs, nurses notes. Data interpreted: Pulse oximetry: on room air kb is 100 %. Interpretation: normal. Counseling: I had a detailed discussion with the patient and/or guardian regarding: the historical points, exam findings, and any diagnostic results supporting the discharge/admit diagnosis, the need for outpatient follow up, a family practitioner, to return to the emergency department if symptoms worsen or persist or if there are any questions or concerns that arise at home. Administered Medications: 18:36 Drug: SOLU-Medrol 125 mg Route: IM; Site: left ventrogluteal; tr5 18:43 Follow up: Response: No adverse reaction tr5 Disposition: 18:51 Co-signature as Attending Physician, Enio Gee MD. rn Disposition: 05/06/19 18:33 Discharged to Home. Impression: Allergic rhinitis, unspecified. - Condition is Stable. - Discharge Instructions: Allergic Rhinitis. - Medication Reconciliation Form, Thank You Letter, Antibiotic Education, Prescription Opioid Use form. - Follow up: Emergency Department; When: As needed; Reason: Worsening of condition. Follow up: Private Physician; When: 2 - 3 days; Reason: Recheck today's complaints, Continuance of care, Re-evaluation by your physician. Signatures: Dispatcher [employer] [facility] Annika Feldman, TONGUE AND GROOVE MACHINE OPERATOR-C TONGUE AND GROOVE MACHINE OPERATOR-Ckb Enio Gee MD MD rn Baxter, Heather, RN RN hb Rodriguez, Tommie, RN RN tr5 Corrections: (The following items were deleted from the chart) 18:20 18:09 Group A Streptococcus Rapid Sc+[id number] ordered. [facility] 18:20 18:09 Influenza Screen (A \\T\\ B)+BA.LAB.BRZ ordered. [facility] 18:43 18:33 05/06/2019 18:33 Discharged to Home. Impression: Allergic rhinitis, unspecified. tr5 Condition is Stable. Forms are Medication Reconciliation Form, Thank You Letter, Antibiotic Education, Prescription Opioid Use. Follow up: Emergency Department; When: As needed; Reason: Worsening of condition. Follow up: Private Physician; When: 2 - 3 days; Reason: Recheck today's complaints, Continuance of care, Re-evaluation by your physician. kb
[2019-05-06 18:48] VITALS: BP 115/84; TEMP 99.4; O2SAT 100
[2019-05-06] MEDS ORDERED: NA CHLORIDE 0.9% 1,000 ML ONE (19:46)
== END 2019-05-06 18:43 | disposition home or self-care (01) ==
LOC: ER 17:47
DX: J30.9 Allergic rhinitis, unspecified (principal); J30.2 Other seasonal allergic rhinitis
CPT/HCPCS: 96372; 99283; J2930; J7030